=== PATIENT | female | born 1975 | race Two or more races ===

== ENCOUNTER 2024-12-28 14:35 | Emergency (ER) | payer OTHER ==
[~2024-12-28] VITALS: Ht 167.6 cm; Wt 98.0 kg
[2024-12-28] MEDS ORDERED: SYNTHROID88 MCG PO (15:13)
[2024-12-28] MEDS ORDERED: ORPHENADRINE CITRATE 30 MG/ML AMPUL IM ONE (15:45)
[2024-12-28] MEDS ORDERED: KETOROLAC TROMETHAMINE 30 MG VIAL IM ONE (15:45)
[2024-12-28] MEDS ORDERED: KETOROLAC TROMETHAMINE 30 MG VIAL ONE (15:55)
[2024-12-28] MEDS ORDERED: ORPHENADRINE CITRATE 30 MG/ML AMPUL ONE (15:55)
[2024-12-28] MEDS ORDERED: DICLOFENAC SODI50 MG PO (17:37)
[2024-12-28] MEDS ORDERED: NORFLEX100MG PO (17:37)
== END 2024-12-28 18:19 ==
LOC: ER 14:35
DX: S50.11XA Contusion of right forearm, initial encounter (principal); S93.401A Sprain of unspecified ligament of right ankle, initial encounter; W19.XXXA Unspecified fall, initial encounter; Y93.89 Activity, other specified; Y92.89 Other specified places as the place of occurrence of the external cause; Y99.8 Other external cause status; E03.8 Other specified hypothyroidism
CPT/HCPCS: 72040; 73070; 73090; 73110; 73610; 96372; 99283; J1885; J2360